=== PATIENT | female | born 1975 | race Caucasian/White ===

== ENCOUNTER → 2020-12-29 12:54 | Outpatient (BNVA) | payer OTHER, SELFPAY | PROVIDERS: Family Provider Family Medicine; Visit Provider Family Medicine | DX: Z20.822 Contact with and (suspected) exposure to COVID-19 (principal) | CPT/HCPCS: 87635 ==

== ENCOUNTER → 2021-07-18 13:59 | Outpatient (BNVA) | payer OTHER, SELFPAY | PROVIDERS: Family Provider Family Medicine; Visit Provider Family Medicine | DX: I10 Essential (primary) hypertension (principal); R79.89 Other specified abnormal findings of blood chemistry; Z76.89 Persons encountering health services in other specified circumstances; Z13.220 Encounter for screening for lipoid disorders; Z13.6 Encounter for screening for cardiovascular disorders | CPT/HCPCS: 80053; 80061; 84439; 84443; 85025 ==

== ENCOUNTER 2021-10-16 09:17 | Outpatient (CLI) | payer OTHER, SELFPAY ==
--- NOTE | 2021-10-16 09:28 | MM_ITS ---
WS: [id number] BILATERAL SCREENING DIGITAL BREAST TOMOSYNTHESIS MAMMOGRAM WITH CAD HISTORY: Screening HX OF BREAST CA COMPARISON: 05/05/2018 and 04/13/2018 Bilateral CC and MLO views with tomosynthesis and synthetic mammography submitted. Computer aided det ection analyzed. Breast composition: There are scattered areas of fibroglandular density. No suspicious masses, microc alcifications or architectural distortion. Previously described cyst and calcifications in the upper- outer quadrant of the LEFT breast are no longer present. MM/[place] [id number] IMPRESSION: BI-RADS: 2-Benign FOLLOW UP: 1 Year Follow-up
== END 2021-10-16 09:18 | disposition home or self-care (01) ==
LOC: RADSHAW 09:21
PROVIDERS: Family Provider Family Medicine; PCP Family Medicine; Visit Provider Family Medicine
DX: Z12.31 Encounter for screening mammogram for malignant neoplasm of breast (principal)
CPT/HCPCS: 77063; 77067

== ENCOUNTER 2022-01-29 14:02 | Emergency (ER) | payer OTHER, SELFPAY ==
[2022-01-29 14:13] VITALS: BP 160/103; PULSE 104; RESP 18; TEMP 36.6; O2SAT 97; BMI 36.2
--- NOTE | 2022-01-29 14:42 | CTR_ITS ---
PROCEDURE INFORMATION: Exam: CT Abdomen And Pelvis Without Contrast Exam date and time: 01/29/2022 3:30 PM Age: 46 years old Clinical indication: Abdominal pain; Flank; Right; Prior surgery; Surgery type: Gb, hyst; Additional info: Flank pain TECHNIQUE: Imaging protocol: Computed tomography of the abdomen and pelvis without contrast. Radiation optimization: All CT scans at this facility use at least one of these dose optimization techniques: automated exposure control; mA and/or kV adjustment per patient size (includes targeted exams where dose is matched to clinical indication); or iterative reconstruction. COMPARISON: No relevant prior studies available. RADIATION DOSE METRICS: Total DLP (mGy-cm): 844.71 FINDINGS: Liver: Normal. No mass. Gallbladder and bile ducts: Cholecystectomy. No ductal dilation. Pancreas: Normal. No ductal dilation. Spleen: Normal. No splenomegaly. Adrenal glands: Normal. No mass. Kidneys and ureters: Obstructing 3 mm stone at the right UVJ with mild upstream hydroureteronephrosis. A couple punctate nonobstructing stones noted in the lower pole left kidney. Stomach and bowel: Scattered colonic diverticulosis. No obstruction. No mucosal thickening. Appendix: No evidence of appendicitis. Intraperitoneal space: Unremarkable. No free air. No significant fluid collection. Vasculature: Unremarkable. No abdominal aortic aneurysm. Lymph nodes: Unremarkable. No enlarged lymph nodes. Urinary bladder: Unremarkable as visualized. Reproductive: Hysterectomy. 2.4 cm cyst noted in the left ovary, likely a dominant follicle. Bones/joints: No acute fracture. Soft tissues: Unremarkable. CT/CT kidney stone [id number] IMPRESSION: Obstructing 3 mm stone at the right UVJ with mild upstream hydroureteronephrosis. Punctate nonobstructing stones also noted in the left kidney.
[2022-01-29 14:59] VITALS: RESP 24
[2022-01-29] MEDS: morphine 4 mg/mL SDV 1 mL 6 MG IVP (14:59)
[2022-01-29] MEDS: ondansetron 2 mg/ML SDV 2 mL 4 MG IVP (15:02)
[2022-01-29 15:06] LABS: Basophils % 0.3 %; Eosinophils % 0.1 %; Hematocrit 44.3 % (37.0-47.0); Hemoglobin 14.6 g/dL (11.5-15.3); Lymphocytes # 1.9 10^3/uL (0.8-4.8); Mean Corpuscular Hemoglobin 28.5 pg (28.0-34.0); Mean Corpuscular Volume 86.5 fl (81-99); Mean Platelet Volume 9.4 fL (7.4-10.4); Monocytes # 0.6 10^3/uL (0.2-0.9); Monocytes % 4.1 %; Neutrophils # 13.06 10^3/uL (1.8-7.7); Nucleated Red Blood Cells % 0 %; Platelet Count 362 10^3/cmm (130-400); Red Blood Count 5.12 10^6/uL (4.1-5.3); Red Cell Distribution Width 12.8 % (12.1-15.1); White Blood Count 15.7 10^3/uL (4.0-10.0)
--- NOTE | 2022-01-29 15:13 | W.ED.FEMALGU ---
HPI - Female Genitourinary General: Chief complaint: Urogenital-Female Stated complaint: low abd pain/kidney stone Time Seen by Provider: 01/29/22 14:41 Source: patient Mode of arrival: ambulatory History of Present Illness: 46-year-old female with a history of kidney stones presents emergency care she was seen earlier today had hematuria thought to have a right-sided renal stone. She has a history of nephrolithiasis been several years since she passed the stone. She has severe cramping and pain characteristic of a stone on the right flank radiating pain into the groin. She not had any fevers or chills no dysuria urgency or frequency no darrian hematuria. She has been taking Tylenol and ibuprofen [id number] with no relief of pain MD elicited complaint: flank pain Onset (ago): day(s) Location of symptoms: flank (Right) Severity: severe Quality of pain: sharp Consistency: constant Vaginal discharge: none Vaginal bleeding: none Urinary symptoms: Flank Pain Exacerbating factors: none Relieving factors: none Associated symptoms: Reports nausea; Deny abdominal pain, short of breath, fevers/chills, headache(s), rash, seizures, syncope, vaginal bleeding, vaginal discharge or weakness Treatment prior to arrival: none Review of Systems Const: Denies: fever(s), chills, body aches, change in appetite, fatigue or malaise ENMT: Denies: throat pain, ear or mastoid pain, nasal discharge or nasal congestion Card: Denies: chest pain, palpitations or syncope Resp: Denies: dyspnea, productive cough or non-productive cough GI: Reports: nausea; Denies: abdominal pain : Reports: flank pain; Denies: difficulty voiding, dysuria, urinary frequency, urinary urgency or vaginal discharge Skin/Breast: Denies: rash or pruritus Neuro: Denies: headache(s) PFS ED PFSH: Social History Smoking and tobacco status: never smoked Alcohol intake: never Physical Exam Const: COMMON NORMALS: no acute distress GENERAL APPEARANCE: cooperative and comfortable ORIENTATION/CONSCIOUSNESS: Yes awake, Yes oriented to person, Yes oriented to place and Yes oriented to time HENMT: COMMON NORMALS: normocephalic, atraumatic and hearing grossly normal bilaterally HEAD & SCALP: normocephalic and atraumatic Resp: COMMON NORMALS: normal respiratory effort, No retractions, No use of accessory muscles and clear to auscultation bilaterally AUSCULTATION: clear to auscultation bilaterally Cardio: COMMON NORMALS: regular rate, regular rhythm and No murmurs present (Cardio) RATE: regular rate RHYTHM: regular rhythm GI: COMMON NORMALS: Soft to palpation and No hepatosplenomegaly present AUSCULTATION: Yes normoactive bowel sounds PALPATION: Yes Soft to palpation, No Tenderness to palpation present (GI), No Guarding due to palpation present (GI) and Yes No hepatosplenomegaly present : BLADDER/KIDNEY EXAM: Yes CVA tenderness SPECULUM EXAM - VAGINA: No vaginal bleeding OB/EXTERNAL & SPECULUM: No vaginal bleeding Back/Pelvis: GENERAL BACK: Yes CVA tenderness CVA tenderness: right Extremity: COMMON NORMALS: normal to inspection, capillary refill normal, no clubbing, cyanosis or edema, no calf tenderness and no pedal edema Neuro: SENSORIUM/ORIENTATION: Yes oriented to person, Yes oriented to place and Yes oriented to time Skin: COMMON NORMALS: no rashes or lesions noted GENERAL SKIN EXAM: no rashes or lesions noted Course Vital Signs: Vital signs: Vital Signs Temperature 97.9 F 01/29/22 14:13 Pulse Rate 104 H 01/29/22 14:13 Respiratory Rate 18 01/29/22 15:57 Blood Pressure 160/103 01/29/22 14:13 Pulse Oximetry 97 01/29/22 14:13 Oxygen Delivery Me thod 01/29/22 14:13 MDM - Female Medical Decision Making Pain controlled in the emergency room discharged home with hydrocodone tamsulosin and promethazine. Strain urine to collect stone. Follow-up with urology Case management will make arrangements. Discussed pain control with the patient. Return if pain poorly controlled. Medical Records I reviewed the patient's medical records. Lab Data I reviewed the patient's lab results. : 01/29/22 15:00 01/29/22 15:00 Radiology Impressions Abdomen/Pelvis CT 01/29/22 14:42 IMPRESSION: Obstructing 3 mm stone at the right UVJ with mild upstream hydroureteronephrosis. Punctate nonobstructing stones also noted in the left kidney. Laboratory Results WBC 15.7 10^3/uL (4.0-10.0) H 01/29/22 15:00 RBC 5.12 10^6/uL (4.1-5.3) 01/29/22 15:00 Hgb 14.6 g/dL (11.5-15.3) 01/29/22 15:00 Hct 44.3 % (37.0-47.0) 01/29/22 15:00 MCV 86.5 fl (81-99) 01/29/22 15:00 MCH 28.5 pg (28.0-34.0) 01/29/22 15:00 MCHC 33.0 g/dL (30.0-36.0) 01/29/22 15:00 RDW 12.8 % (12.1-15.1) 01/29/22 15:00 Plt Count 362 10^3/cmm (130-400) 01/29/22 15:00 MPV 9.4 fL (7.4-10.4) 01/29/22 15:00 Neut % (Auto) 83.0 % 01/29/22 15:00 Lymph % (Auto) 12.0 % 01/29/22 15:00 [place] % (Auto) 4.1 % 01/29/22 15:00 Eos % (Auto) 0.1 % 01/29/22 15:00 Baso % (Auto) 0.3 % 01/29/22 15:00 Neut # (Auto) 13.06 10^3/uL (1.8-7.7) H 01/29/22 15:00 Lymph # (Auto) 1.9 10^3/uL (0.8-4.8) 01/29/22 15:00 [place] # (Auto) 0.6 10^3/uL (0.2-0.9) 01/29/22 15:00 Eos # (Auto) 0.0 10^3/uL (0.0-0.8) 01/29/22 15:00 Baso # (Auto) 0.0 10^3/uL (0.0-0.1) 01/29/22 15:00 Nucleated RBC % (auto) 0 % 01/29/22 15:00 Nucleated RBCs # 0.0 /100WBC 01/29/22 15:00 Sodium 136 mmol/L (136-145) 01/29/22 15:00 Potassium 3.9 mmol/L (3.5-5.1) 01/29/22 15:00 Chloride 98 mmol/L (98-107) 01/29/22 15:00 Carbon Dioxide 21 mmol/L (22-29) L 01/29/22 15:00 Anion Gap 20.9 (5-19) H 01/29/22 15:00 BUN 9 mg/dL (6-20) 01/29/22 15:00 Creatinine 0.7 mg/dL (0.5-0.9) 01/29/22 15:00 GFR Calculation 90.9 mL/min (90-130) 01/29/22 15:00 Glucose 142 mg/dL (65-115) H 01/29/22 15:00 Calculated Osmolality 283 mOsm/kg (285-295) L 01/29/22 15:00 Calcium 10.2 mg/dL (8.5-10.5) 01/29/22 15:00 HCG, Qual Negative (Negative) 01/29/22 15:00 Discharge Plan Discharge Patient Disposition: Home Clinical Impression: Right nephrolithiasis Condition: Stable Prescriptions: New hydrocodone-acetaminophen 5-325 mg tablet 1 tab PO Q6H PRN (Reason: pain) Qty: 20 0RF promethazine 25 mg tablet 25 mg PO Q6H PRN (Reason: nausea and vomiting) Qty: 20 0RF tamsulosin 0.4 mg capsule 0.4 mg PO DAILY Qty: 10 0RF No Action benzonatate 100 mg capsule 100 mg PO TID PRN (Reason: cough) Qty: 30 0RF ondansetron 4 mg tablet,disintegrating 4 mg PO Q6H PRN (Reason: nausea and vomiting) Qty: 20 0RF lisinopril 20 mg tablet 20 mg PO QAM amlodipine 10 mg tablet 10 mg PO QAM Discharge Orders: Discharge ED (Routine); Ordered 01/29/22 Ordered By: Trell Cash Referrals: Coy Meeks DO [Primary Care Provider] - Discharge Diet: Usual diet Discharge Activity: Resume usual activity Patient Instructions: Opioid Safety Activity Restrictions/Additional Instructions: Strain urine to collect stone. transaction advisory services manager will make arrangements for you to follow-up with urology. Coding Level of Care Code ED Draw Frame Operator for Chg Fwd Exam Problem Focused
[2022-01-29 15:18] LABS: HCG, Serum Qual Negative (Negative)
[2022-01-29 15:33] LABS: Anion Gap 20.9 (5-19); Blood Urea Nitrogen 9 mg/dL (6-20); Calcium 10.2 mg/dL (8.5-10.5); Carbon Dioxide 21 mmol/L (22-29); Chloride 98 mmol/L (98-107); Glomerular Filtration Rate 90.9 mL/min (90-130); Glucose 142 mg/dL (65-115); Osmolality Calculated 283 mOsm/kg (285-295); Potassium 3.9 mmol/L (3.5-5.1); Sodium 136 mmol/L (136-145)
[2022-01-29 15:57] VITALS: RESP 18
[2022-01-29] MEDS: morphine 4 mg/mL SDV 1 mL IVP (15:57)
[2022-01-29] MEDS: tamsulosin 0.4 mg Capsule PO (15:58)
[2022-01-29] MEDS: ketorolac 30 mg/mL INJ IVP (16:21)
--- NOTE | 2022-01-30 10:01 | DCPLANNER ---
Addendum entered by Shari Roberson 03/28/22 14:57: appointment was cancelled Addendum entered by Shari Roberson 02/08/22 14:08: Patient has a follow up appointment scheduled for Friday, March 18, 2022 at 8:00 with Karina Pepper at urology. Clinic will call patient with appointment information. Original Note: manager of medical had message to schedule a follow up appointment for patient with urology. manager of medical sent patients information to the front office staff at urology. Patients information will be printed and reviewed. Clinic will call patient with appointment information.
== END 2022-01-29 16:48 | disposition home or self-care (01) ==
PROVIDERS: Emergency Provider Family Medicine; PCP Family Medicine
DX: N20.0 Calculus of kidney (principal)
CPT/HCPCS: 74176; 80048; 81000; 84703; 85025; 96374; 96375; 96376; 99285; J1885; J2270; J2405

== ENCOUNTER 2023-07-05 20:09 | Emergency (ER) | payer OTHER, SELFPAY ==
[2023-07-05 20:18] VITALS: BMI 32.9
[2023-07-05 20:43] LABS: Amphetamines Screen Urine Negative (Negative); Barbiturates Screen Urine Negative (Negative); Benzodiazepines Screen Urine Negative (Negative); Cocaine Screen Urine Negative (Negative); Opiate Screen Urine Negative (Negative); PCP Screen Urine Negative (Negative); THC Screen Urine Negative (Negative)
--- NOTE | 2023-07-06 01:54 | ED_ITS ---
HPI - Medical Clearance General: Chief complaint: Medical Clearance Stated complaint: urine drug screen Time Seen by Provider: 07/05/23 20:26 Source: patient Mode of arrival: ambulatory Limitations: no limitations History of Present Illness: Patient presents emergency department today accompanied by staff for urine drug screen due to medication discrepancy for Adderall at shift change. Review of Systems General: Reports: 10 or more systems reviewed and unremarkable except in HPI and below PFSH ED PFSH: Social History Smoking and tobacco/nicotine status: never used tobacco/nicotine Second hand smoke exposure: No Alcohol intake: never Substance/Drug Use: never Physical Exam Const: OTHER: Patient is pleasant, social. Answers her own history. Extremity: NARRATIVE EXTREMITY EXAM: Patient is independently ambulatory and weightbearing here in the emergency department. Psych: COMMON NORMALS: mental status grossly normal, Normal thought process present, cooperative, normal affect, speech normal and activity/motor behavior normal SPEECH: Yes normal speech THOUGHT PROCESS: Normal thought process present [facility] - Medical Clearance Medical Decision Making Patient produced a urine specimen for urine drug screen. Urine drug screen is negative. Patient's paperwork was filled out and given back to the resort housekeeper to then be given to employee health. Differential Diagnosis Unlikely urinary tract infection, genital herpes simplex or acute retention of urine Lab Data Laboratory Results Urine Opiates Screen Negative ng/mL (Negative) 07/05/23 20:25 Ur Barbiturates Screen Negative ng/mL (Negative) 07/05/23 20:25 Ur Phencyclidine Scrn Negative ng/mL (Negative) 07/05/23 20:25 Ur Amphetamines Screen Negative ng/mL (Negative) 07/05/23 20:25 U Benzodiazepines Scrn Negative ng/mL (Negative) 07/05/23 20:25 Urine Cocaine Screen Negative ng/mL (Negative) 07/05/23 20:25 U Marijuana (THC) Screen Negative ng/mL (Negative) 07/05/23 20:25 No radiology studies performed this visit Discharge Plan Discharge Patient Disposition: Home Clinical Impression: Encounter for drug screening Prescriptions: No Action amlodipine 5 mg tablet See Rx Instructions .ROUTE .COMPLEX Qty: 90 3RF Dose Instruction: Take 1 tablet by mouth once daily Rx Instructions: Take 1 tablet by mouth once daily chlorthalidone 25 mg tablet 25 mg PO DAILY Qty: 90 3RF vilazodone 20 mg tablet 20 mg PO DAILY 90 Days Qty: 90 3RF losartan 50 mg tablet See Rx Instructions .ROUTE .COMPLEX Qty: 90 0RF Dose Instruction: TAKE ONE TABLET BY MOUTH EVERY DAY Rx Instructions: TAKE ONE TABLET BY MOUTH EVERY DAY Discharge Orders: Discharge ED (Routine); Ordered 07/06/23 Ordered By: Ting Riley Referrals: Coy Meeks DO [Primary Care Provider] - Patient Instructions: Opioid Safety, Pain Management Coding Level of Care Code ED [facility] [place] for [facility] Justice
== END 2023-07-05 21:18 | disposition home or self-care (01) ==
PROVIDERS: Emergency Medicine; Emergency Provider Physician Assistant; PCP Family Medicine
DX: Z00.00 Encounter for general adult medical examination without abnormal findings (principal)
CPT/HCPCS: 80306; 99283

== ENCOUNTER 2023-10-27 02:38 | Emergency (ER) | payer OTHER, SELFPAY ==
[2023-10-27] VITALS (15 sets, daily range): BP systolic 103–200; BP diastolic 66–116; PULSE 64–85; RESP 15–20; TEMP 36.6; O2SAT 94–100; BMI 34.7
--- NOTE | 2023-10-27 03:02 | CTR_ITS ---
PROCEDURE INFORMATION: Exam: CT Abdomen And Pelvis With Contrast Exam date and time: 10/27/2023 3:19 AM Age: 48 years old Clinical indication: Nausea and vomiting; Abdominal pain; Localized; Prior surgery; Surgery date: 6+ months; Surgery type: Gb. Partial hysterectomy. Patient HX: C/O upper abd pain with n/v. ; Additional info: Upper abd pain vomiting TECHNIQUE: Imaging protocol: Computed tomography of the abdomen and pelvis with contrast. Radiation optimization: All CT scans at this facility use at least one of these dose optimization techniques: automated exposure control; mA and/or kV adjustment per patient size (includes targeted exams where dose is matched to clinical indication); or iterative reconstruction. Contrast material: OMNI 350; Contrast volume: 100 ml; Contrast route: INTRAVENOUS (IV); COMPARISON: CT kidney stone [id number] 01/29/2022 3:30 PM RADIATION DOSE METRICS: Total DLP (mGy-cm): 888.5 FINDINGS: Lungs: Partially imaged lung bases demonstrate mild posterior basilar somewhat nodular pleural thickening. Liver: Mild diffuse hepatic steatosis. No focal liver lesion. Gallbladder and bile ducts: Status post cholecystectomy. 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 Adrenal glands: Normal. No mass. Kidneys and ureters: Normal. No hydronephrosis. Stomach and bowel: Diffuse prominent circumferential duodenal and jejunal wall thickening and hyperenhancement. No abnormal bowel dilation. Differential diagnosis for this appearance includes hemorrhage, ischemia and lymphoma. Nonspecific nondilated fluid-filled loops of ileum. Appendix: No evidence of appendicitis. Intraperitoneal space: Unremarkable. No free air. No significant fluid collection. Vasculature: Celiac trunk again appears aneurysmal up to 10 mm diameter and is seen to contain a large amount of mural thrombus, with suggestion of possible small filling defects within the celiac trunk well as proximal splenic artery; mid to distal splenic artery is completely. Common hepatic artery again appears aneurysmal up to 8 mm diameter ; it contains a large amount of mural thrombus but appears patent. Left gastric artery may contain small filling defects and patency is difficult to ascertain. SMA and RAAD appear patent. Portal splenic confluence and SMV are patent. Lymph nodes: Shotty mesenteric nodes. No enlarged lymph nodes. Urinary bladder: Unremarkable as visualized. Reproductive: 3 cm left ovarian follicle. Bones/joints: Unremarkable. No acute fracture. Soft tissues: Unremarkable. CT/CT abdomen pelvis w con* [id number] IMPRESSION: 1. 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 2. 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 Findings discussed with Dr. Mackenzie at 4:10 a.m. on 10/27/2023. 3. Diffuse prominent circumferential duodenal and jejunal wall thickening and hyperenhancement. Consider GI consultation. 4. Chronic findings as above
[2023-10-27] MEDS: ondansetron 2 mg/ML SDV 2 mL 4 MG IVP ×2 (03:08→09:04)
[2023-10-27] MEDS: HYDROmorphone 1 mg/mL INJ 1 mL IVP ×5 (03:10→11:41)
[2023-10-27 03:11] LABS: Basophils % 0.2 %; Eosinophils # 0.4 10^3/uL (0.0-0.8); Eosinophils % 3.3 %; Hematocrit 40.1 % (36-47); Lymphocytes # 4.6 10^3/uL (0.8-4.8); Lymphocytes % 36.8 %; Mean Corpuscular HGB Conc 32.4 g/dL (30-55); Mean Corpuscular Hemoglobin 28.8 pg (27-33); Mean Corpuscular Volume 88.7 fl (85-98); Mean Platelet Volume 9.4 fL (7.4-10.4); Monocytes # 0.8 10^3/uL (0.2-0.9); Monocytes % 6.5 %; Neutrophils # 6.49 10^3/uL (1.8-7.7); Neutrophils % 52.5 %; Nucleated Red Blood Cells % 0 %; Platelet Count 299 10^3/cmm (157-399); Red Blood Count 4.52 10^6/uL (3.85-5.65); Red Cell Distribution Width 14.7 % (12.1-15.1); White Blood Count 12.38 10^3/uL (3.29-11.43)
[2023-10-27] MEDS: iohexol 350 mg/mL 500 mL Btl (per mL) IV (03:20)
[2023-10-27 03:21] LABS: Alanine Aminotransferase 15 U/L (0-33); Albumin Level 3.9 g/dL (3.5-5.2); Alkaline Phosphatase 92 U/L (35-105); Anion Gap 16.3 (5-19); Aspartate Amino Transferase 15 U/L (0-32); Blood Urea Nitrogen 10 mg/dL (6-20); C Reactive Protein 18.1 mg/L (0.0-4.9); Calcium 8.7 mg/dL (8.5-10.5); Carbon Dioxide 25 mmol/L (22-29); Chloride 102 mmol/L (98-107); Creatine Phosphokinase 109 U/L (26-192); Creatinine Clr Calc Pharmacy 89.5174; Globulin 3.5 g/dL (1.3-4.6); Glomerular Filtration Rate 77.2 mL/min (90-130); Glucose 129 mg/dL (65-115); Lipase 30 U/L (13-60); Osmolality Calculated 291 mOsm/kg (285-295); Potassium 3.3 mmol/L (3.5-5.1); Sodium 140 mmol/L (136-145); Total Bilirubin 0.2 mg/dL (0.15-1.2); Total Protein 7.4 g/dL (6.6-8.7)
--- NOTE | 2023-10-27 03:26 | ED_ITS ---
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 She is status postcholecystectomy and hysterectomy. She presents with upper abdominal pain bilaterally that woke her from sleep this morning. Tenderness is across her epigastrium and into her back. It is perhaps a bit more on the right than the left. She is not short of breath. She has been vomiting. Associated Symptoms: Reports chills, diarrhea, nausea and vomiting; Denies fever(s) and hematochezia Review of Systems 2 Const: Reports: chills; Denies: fever(s) Card: Denies: chest pain or palpitations Resp: Denies: dyspnea, productive cough, non-productive cough or wheezing GI: Reports: abdominal pain, nausea, vomiting and diarrhea; Denies: hematochezia : Denies: difficulty voiding Skin/Breast: Denies: rash Neuro: Reports: weakness in extremities, dizziness and confusion; Denies: headache(s) PFSH ED 2 PFSH: Social History Smoking and tobacco/nicotine status: never used tobacco/nicotine Second hand smoke exposure: No Alcohol intake: never Substance/Drug Use: never Physical Exam 2 Const: GENERAL APPEARANCE: cooperative; not frail appearing HENMT: COMMON NORMALS: normocephalic, atraumatic and Normal external nose present HEAD & SCALP: normocephalic and atraumatic FACE & SINUS: normal facial exam and face symmetric NOSE: Normal external nose present Eye: COMMON NORMALS: Equal, round and reactive pupils present and EOMs intact bilaterally PUPIL: Yes Equal, round and reactive pupils present Neck/C-Spine: GENERAL: Yes trachea midline Chest: CHEST: Yes Symmetrical chest wall rise Resp: COMMON NORMALS: normal respiratory effort, No retractions, No use of accessory muscles and clear to auscultation bilaterally AUSCULTATION: clear to auscultation bilaterally Cardio: COMMON NORMALS: regular rate and regular rhythm RATE: regular rate RHYTHM: regular rhythm GI: COMMON NORMALS: Soft to palpation PALPATION: Yes Soft to palpation and Yes Tenderness to palpation present (GI) (Epigastric) Details: LUQ and RUQ Extremity: COMMON NORMALS: no pedal edema Neuro: ROBERTO CARLOS COMA SCALE: document GCS findings [place] coma scale eye opening: Spontaneous [place] coma scale verbal response: Orientated Roberto Carlos coma scale motor response: Obey commands Roberto Carlos coma scale total score: 15 S ENSORY EXAM: Yes extremities (intact) Psych: COMMON NORMALS: speech normal SPEECH: Yes normal speech Skin: COMMON NORMALS: no rashes or lesions noted GENERAL SKIN EXAM: no rashes or lesions noted Course 2 Vital Signs: Vital signs: Vital Signs Temperature 97.8 F 10/27/23 02:43 Pulse Rate 85 10/27/23 13:19 Respiratory Rate 16 10/27/23 13:19 Blood Pressure 126/90 10/27/23 13:19 Pulse Oximetry 94 10/27/23 13:19 Oxygen Delivery Me thod Room Air 10/27/23 09:08 MDM - Abdominal Pain Medical Decision Making White blood cell count is 12.4. Potassium is 3.3. CRP is 18. CT is pending. Pain is improved after Dilaudid and Zofran. Blood pressure is also improved down from 200 systolic to 145 systolic. 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 There are some wall thickening of the duodenum and jejunum perhaps related to this. We have no vascular surgery or interventional radiology at this facility. I have a call out to [facility] in [place] asking for recommendations. The patient is awake and alert, pain is under more control currently. Lab Data 10/27/23 02:49 10/27/23 02:49 Labs/Radiology: Radiology Impressions Abdomen/Pelvis CT 10/27/23 03:02 IMPRESSION: 1. 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 2. 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 Findings discussed with Dr. Mackenzie at 4:10 a.m. on 10/27/2023. 3. Diffuse prominent circumferential duodenal and jejunal wall thickening and hyperenhancement. Consider GI consultation. 4. Chronic findings as above Laboratory Results WBC 12.38 10^3/uL (3.29-11.43) H 10/27/23 02:49 RBC 4.52 10^6/uL (3.85-5.65) 10/27/23 02:49 Hgb 13.00 g/dL (11.27-16.99) 10/27/23 02:49 Hct 40.1 % (36-47) 10/27/23 02:49 MCV 88.7 fl (85-98) 10/27/23 02:49 MCH 28.8 pg (27-33) 10/27/23 02:49 MCHC 32.4 g/dL (30-55) 10/27/23 02:49 RDW 14.7 % (12.1-15.1) 10/27/23 02:49 Plt Count 299 10^3/cmm (157-399) 10/27/23 02:49 MPV 9.4 fL (7.4-10.4) 10/27/23 02:49 Neut % (Auto) 52.5 % 10/27/23 02:49 Lymph % (Auto) 36.8 % 10/27/23 02:49 Placer % (Auto) 6.5 % 10/27/23 02:49 Eos % (Auto) 3.3 % 10/27/23 02:49 Baso % (Auto) 0.2 % 10/27/23 02:49 Neut # (Auto) 6.49 10^3/uL (1.8-7.7) 10/27/23 02:49 Lymph # (Auto) 4.6 10^3/uL (0.8-4.8) 10/27/23 02:49 Placer # (Auto) 0.8 10^3/uL (0.2-0.9) 10/27/23 02:49 Eos # (Auto) 0.4 10^3/uL (0.0-0.8) 10/27/23 02:49 Baso # (Auto) 0.0 10^3/uL (0.0-0.1) 10/27/23 02:49 Nucleated RBC % (auto) 0 % 10/27/23 02:49 Nucleated RBCs # 0.0 /100WBC 10/27/23 02:49 ESR 24 mm/hr (0-15) H 10/27/23 02:49 APTT 57.6 SECONDS (23.9-36.7) H D 10/27/23 12:55 Sodium 140 mmol/L (136-145) 10/27/23 02:49 Potassium 3.3 mmol/L (3.5-5.1) L 10/27/23 02:49 Chloride 102 mmol/L (98-107) 10/27/23 02:49 Carbon Dioxide 25 mmol/L (22-29) 10/27/23 02:49 Anion Gap 16.3 (5-19) 10/27/23 02:49 BUN 10 mg/dL (6-20) 10/27/23 02:49 Creatinine 0.8 mg/dL (0.5-0.9) 10/27/23 02:49 GFR Calculation 77.2 mL/min (90-130) L 10/27/23 02:49 Glucose 129 mg/dL (65-115) H 10/27/23 02:49 Calculated Osmolality 291 mOsm/kg (285-295) 10/27/23 02:49 Lactic Acid 1.2 mmol/L (0.5-2.2) 10/27/23 04:42 Calcium 8.7 mg/dL (8.5-10.5) 10/27/23 02:49 Total Bilirubin 0.2 mg/dL (0.15-1.2) 10/27/23 02:49 AST 15 U/L (0-32) 10/27/23 02:49 ALT 15 U/L (0-33) 10/27/23 02:49 Alkaline Phosphatase 92 U/L (35-105) 10/27/23 02:49 Creatine Kinase 109 U/L (26-192) 10/27/23 02:49 C-Reactive Protein 18.1 mg/L (0.0-4.9) H 10/27/23 02:49 Total Protein 7.4 g/dL (6.6-8.7) 10/27/23 02:49 Albumin 3.9 g/dL (3.5-5.2) 10/27/23 02:49 Globulin 3.5 g/dL (1.3-4.6) 10/27/23 02:49 Lipase 30 U/L (13-60) 10/27/23 02:49 Urine Color Colorless (Yellow) 10/27/23 03:42 Urine Appearance Clear (CLEAR) 10/27/23 03:42 Urine pH 7 (5-7) 10/27/23 03:42 Ur Specific Corrigan 1.000 (1.005-1.030) L 10/27/23 03:42 Urine Protein Neg (Negative) 10/27/23 03:42 Urine Glucose (UA) Norm (Normal) 10/27/23 03:42 Urine Ketones Negative (Negative) 10/27/23 03:42 Urine Blood Neg (Negative) 10/27/23 03:42 Urine Nitrate Negative (Negative) 10/27/23 03:42 Urine Bilirubin Neg (Negative) 10/27/23 03:42 Urine Urobilinogen Neg mg/dL (Negative) 10/27/23 03:42 Ur Leukocyte Esterase Negative (Negative) 10/27/23 03:42 All radiology interpretation(s) finalized by discharge Discharge Plan Discharge Patient Disposition: Xfer Short-Term Hosp Clinical Impression: Thrombosis of splenic artery, Infarction of spleen, Aneurysm of celiac artery Condition: Fair Referrals: Coy Meeks DO [Primary Care Provider] - Coding Level of Care Code ED [employer] Lab Technician for Chg Fwd Documented by User: Trell Cash DO 10/27/23 13:20 HPI - Abdominal Pain 2 General: Chief Complaint: Abdominal Pain Stated Complaint: severe sudden back pain wraps around Time Seen by Provider: 10/27/23 03:02 [facility] ED 2 PFSH: Social History Smoking and tobacco/nicotine status: never used tobacco/nicotine Second hand smoke exposure: No Alcohol intake: never Substance/Drug Use: never Physical Exam 2 Neuro: ROBERTO CARLOS COMA SCALE: document GCS findings [place] coma scale total score: 15 Course 2 Vital Signs: Vital signs: Vital Signs Temperature 97.8 F 10/27/23 02:43 Pulse Rate 85 10/27/23 13:19 Respiratory Rate 16 10/27/23 13:19 Blood Pressure 126/90 10/27/23 13:19 Pulse Oximetry 94 10/27/23 13:19 Oxygen Delivery Me thod Room Air 10/27/23 09:08 MDM - Abdominal Pain Medical Decision Making White blood cell count is 12.4. Potassium is 3.3. CRP is 18. CT is pending. Pain is improved after Dilaudid and Zofran. Blood pressure is also improved down from 200 systolic to 145 systolic. 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 There are some wall thickening of the duodenum and jejunum perhaps related to this. We have no vascular surgery or interventional radiology at this facility. I have a call out to [facility] in [place] asking for recommendations. The patient is awake and alert, pain is under more control currently. Care assumed at change of shift I discussed with the vascular surgery at [facility]. They are concerned about vasculitis or rheumatologic disorder hypercoagulability or occult tumor precipitating these thrombosis they are not as concerned about the potential aneurysm of the celiac artery they do not believe that it is an aneurysm after reviewing the films that we sent to them. I discussed Dr. Flores we do not feel that we have appropriate services here to further work this up especially given her age and the multiple thrombosis that she has. Will transfer to [facility] to the hospitalist service they will consult as appropriate including possibly GI rheumatology and vascular. Discussed with patient to continue the heparin pain control transfer via [facility] to [facility] in stable condition Medical Records I reviewed the patient's medical records. Lab Data I reviewed the patient's lab results. 10/27/23 02:49 10/27/23 02:49 Labs/Radiology: Radiology Impressions Abdomen/Pelvis CT 10/27/23 03:02 IMPRESSION: 1. 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 2. 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 Findings discussed with Dr. Mackenzie at 4:10 a.m. on 10/27/2023. 3. Diffuse prominent circumferential duodenal and jejunal wall thickening and hyperenhancement. Consider GI consultation. 4. Chronic findings as above Laboratory Results WBC 12.38 10^3/uL (3.29-11.43) H 10/27/23 02:49 RBC 4.52 10^6/uL (3.85-5.65) 10/27/23 02:49 Hgb 13.00 g/dL (11.27-16.99) 10/27/23 02:49 Hct 40.1 % (36-47) 10/27/23 02:49 MCV 88.7 fl (85-98) 10/27/23 02:49 MCH 28.8 pg (27-33) 10/27/23 02:49 MCHC 32.4 g/dL (30-55) 10/27/23 02:49 RDW 14.7 % (12.1-15.1) 10/27/23 02:49 Plt Count 299 10^3/cmm (157-399) 10/27/23 02:49 MPV 9.4 fL (7.4-10.4) 10/27/23 02:49 Neut % (Auto) 52.5 % 10/27/23 02:49 Lymph % (Auto) 36.8 % 10/27/23 02:49 Placer % (Auto) 6.5 % 10/27/23 02:49 Eos % (Auto) 3.3 % 10/27/23 02:49 Baso % (Auto) 0.2 % 10/27/23 02:49 Neut # (Auto) 6.49 10^3/uL (1.8-7.7) 10/27/23 02:49 Lymph # (Auto) 4.6 10^3/uL (0.8-4.8) 10/27/23 02:49 Placer # (Auto) 0.8 10^3/uL (0.2-0.9) 10/27/23 02:49 Eos # (Auto) 0.4 10^3/uL (0.0-0.8) 10/27/23 02:49 Baso # (Auto) 0.0 10^3/uL (0.0-0.1) 10/27/23 02:49 Nucleated RBC % (auto) 0 % 10/27/23 02:49 Nucleated RBCs # 0.0 /100WBC 10/27/23 02:49 ESR 24 mm/hr (0-15) H 10/27/23 02:49 APTT 57.6 SECONDS (23.9-36.7) H D 10/27/23 12:55 Sodium 140 mmol/L (136-145) 10/27/23 02:49 Potassium 3.3 mmol/L (3.5-5.1) L 10/27/23 02:49 Chloride 102 mmol/L (98-107) 10/27/23 02:49 Carbon Dioxide 25 mmol/L (22-29) 10/27/23 02:49 Anion Gap 16.3 (5-19) 10/27/23 02:49 BUN 10 mg/dL (6-20) 10/27/23 02:49 Creatinine 0.8 mg/dL (0.5-0.9) 10/27/23 02:49 GFR Calculation 77.2 mL/min (90-130) L 10/27/23 02:49 Glucose 129 mg/dL (65-115) H 10/27/23 02:49 Calculated Osmolality 291 mOsm/kg (285-295) 10/27/23 02:49 Lactic Acid 1.2 mmol/L (0.5-2.2) 10/27/23 04:42 Calcium 8.7 mg/dL (8.5-10.5) 10/27/23 02:49 Total Bilirubin 0.2 mg/dL (0.15-1.2) 10/27/23 02:49 AST 15 U/L (0-32) 10/27/23 02:49 ALT 15 U/L (0-33) 10/27/23 02:49 Alkaline Phosphatase 92 U/L (35-105) 10/27/23 02:49 Creatine Kinase 109 U/L (26-192) 10/27/23 02:49 C-Reactive Protein 18.1 mg/L (0.0-4.9) H 10/27/23 02:49 Total Protein 7.4 g/dL (6.6-8.7) 10/27/23 02:49 Albumin 3.9 g/dL (3.5-5.2) 10/27/23 02:49 Globulin 3.5 g/dL (1.3-4.6) 10/27/23 02:49 Lipase 30 U/L (13-60) 10/27/23 02:49 Urine Color Colorless (Yellow) 10/27/23 03:42 Urine Appearance Clear (CLEAR) 10/27/23 03:42 Urine pH 7 (5-7) 10/27/23 03:42 Ur Specific Corrigan 1.000 (1.005-1.030) L 10/27/23 03:42 Urine Protein Neg (Negative) 10/27/23 03:42 Urine Glucose (UA) Norm (Normal) 10/27/23 03:42 Urine Ketones Negative (Negative) 10/27/23 03:42 Urine Blood Neg (Negative) 10/27/23 03:42 Urine Nitrate Negative (Negative) 10/27/23 03:42 Urine Bilirubin Neg (Negative) 10/27/23 03:42 Urine Urobilinogen Neg mg/dL (Negative) 10/27/23 03:42 Ur Leukocyte Esterase Negative (Negative) 10/27/23 03:42 Discharge Plan Discharge Patient Disposition: Xfer Short-Term Hosp Clinical Impression: Thrombosis of splenic artery, Infarction of spleen, Aneurysm of celiac artery Condition: Fair Referrals: Coy Meeks DO [Primary Care Provider] - Coding Level of Care Code ED [employer] Lab Technician for Chg Vinh
[2023-10-27 03:53] LABS: Add Urine Microscopic? NO; Charge for UA Resulting for Rev
[2023-10-27 03:55] LABS: Bilirubin Urine Neg (Negative); Blood Urine Neg (Negative); Glucose Urine UA Norm (Normal); Ketones Urine Negative (Negative); Leukocyte Esterase Urine Negative (Negative); Nitrate Urine Negative (Negative); Protein Urine Neg (Negative); Urine Appearance Clear (CLEAR); Urine Color Colorless (Yellow); Urobilinogen Urine Neg (Negative); pH Urine 7 (5-7)
[2023-10-27] MEDS: hyDRALAzine 20 mg/mL INJ 1 mL 10 MG IVP (04:43)
[2023-10-27 05:11] LABS: Lactic Sepsis W/Reflex 1.2 mmol/L (0.5-2.2)
[2023-10-27] MEDS: heparin drip 25,000 UNIT/500 ML PREMIX 24.129999999999999 UNIT IV (05:48)
[2023-10-27] MEDS: heparin 5,000 unit/mL INJ 1 mL IV (05:51)
--- NOTE | 2023-10-27 07:33 | PC.PHAR ---
PT STATES HAS NOT TAKEN CHLOTHALIDONE 25MG IN A MONTH.
[2023-10-27 08:05] LABS: Partial Thromboplastin Time 30.6 SECONDS (23.9-36.7)
[2023-10-27 09:13] LABS: Erythrocyte Sedimentation Rate 24 mm/hr (0-15)
--- NOTE | 2023-10-27 12:48 | PC.NURSE ---
Report given to Cheo Soliz RN at [facility]. No further questions verbalized at end of report. pt notified of this status change.
--- NOTE | 2023-10-27 13:14 | PC.NURSE ---
Report given to [facility] @1999, no further questions verbalized at end of report. 1 IV pump sent with [facility].
[2023-10-27 13:35] LABS: Partial Thromboplastin Time 57.6 SECONDS (23.9-36.7)
== END 2023-10-27 13:20 | disposition short-term general hospital (02) ==
PROVIDERS: Emergency Medicine; Emergency Provider Family Medicine; PCP Family Medicine
DX: I74.8 Embolism and thrombosis of other arteries (principal); I72.8 Aneurysm of other specified arteries
CPT/HCPCS: 36415; 74177; 80053; 81003; 82550; 83605; 83690; 85025; 85651; 85730; 86140; 96374; 96375; 96376; 99285; J0360; J1170; J1644; J2405; Q9967

== ENCOUNTER → 2023-11-06 09:22 | Outpatient (BNVA) | payer OTHER, SELFPAY | PROVIDERS: PCP Family Medicine; Visit Provider Family Medicine | DX: S36.00XA Unspecified injury of spleen, initial encounter (principal); X58.XXXA Exposure to other specified factors, initial encounter | CPT/HCPCS: 80053; 85025 ==

== ENCOUNTER 2023-11-11 15:21 | Outpatient (CLI) | payer OTHER, SELFPAY ==
[2023-11-13 22:30] LABS: Lupus DRVVT Confirm NEGATIVE (NEGATIVE); Lupus Hexagonal Phas Confirm WEAKLY POSITIVE (NEGATIVE); Lupus Thrombin Clotting Time 18 sec (13-19); PTT-LA-Screen 52 sec (< OR = 40)
[2023-11-17 07:00] LABS: Anti-Cardiolipin IgA AB 2.3 APL-U/mL
[2023-11-17 11:54] LABS: Anti-Nuclear Antibody Pattern Nuclear, Speckled; Anti-Nuclear Antibody Screen POSITIVE (NEGATIVE); Anti-Nuclear Antibody Titer 1:40 titer
== END 2023-11-11 15:22 | disposition home or self-care (01) ==
LOC: LAB 15:22
PROVIDERS: PCP Family Medicine; Visit Provider Family Medicine
DX: I82.90 Acute embolism and thrombosis of unspecified vein (principal)
CPT/HCPCS: 85613; 85730; 86038; 86146; 86147

== ENCOUNTER → 2024-08-18 13:00 | Outpatient (BNVA) | payer OTHER, SELFPAY | PROVIDERS: PCP Family Medicine; Visit Provider Family Medicine | DX: R79.89 Other specified abnormal findings of blood chemistry (principal); I26.99 Other pulmonary embolism without acute cor pulmonale; R91.1 Solitary pulmonary nodule; I77.79 Dissection of other specified artery; E55.9 Vitamin D deficiency, unspecified | CPT/HCPCS: 80053; 80061; 82306; 82607; 82728; 83540; 84439; 84443; 85025 ==

== ENCOUNTER 2024-09-07 07:47 | Outpatient (CLI) | payer OTHER, SELFPAY ==
--- NOTE | 2024-09-07 08:00 | CT_ITS ---
WS: [id number] CTA CHEST, ABDOMEN AND PELVIS. HISTORY: Follow-up celiac artery thrombus and splenic infarct. TECHNIQUE: CT angiogram is performed through the chest. Additional imaging is performed through the abdomen and pelvis with IV contrast. Sagittal and coronal reformats have been submitted. MIP imaging also reviewed. All CT scans at [facility] use at least one of these dose optimization techniques: automated exposure control; mA and/or kV adjustment per patient size (includes targeted exams where dose is matched to clinical indication); or iterative reconstruction. Contrast: Omnipaque 350; 95 cc IV. DLP: 1272.39 mGy.cm COMPARISON: CT abdomen and pelvis. Chest CTA: Good opacification of the pulmonary arteries. No embolism is identified. There is beam hardening artifact through the proximal RIGHT pulmonary artery. Normal sized thoracic aorta. Normal great vessels. Heart size is normal. There is a filling defect within the LEFT atrial appendage. No RIGHT heart strain. No pericardial or pleural effusions. No pulmonary mass or pneumonia. Small hiatal hernia. Negative chest wall. Abdomen and pelvis CTA: Good opacification of the abdominal aorta. Good opacification of the celiac axis and SMV. No thrombus or residual inflammatory changes. Inferior mesenteric artery is also widely patent. Good opacification through the iliac arteries. Hepatic steatosis. Mosaic attenuation throughout the spleen due to early phase of injection. No splenic atrophy. Cannot comment on residual infarcts within the spleen due to the early angiographic imaging phase. Normal pancreas. Prior cholecystectomy. Normal renal enhancement. No adenopathy or ascites. Small umbilical hernia contains fat only. No GI tract obstruction. No colitis. No osseous destruction. Prior hysterectomy. Urinary bladder is normally distended. Both ovaries do appear to be present. The appendix is normal. CT/CT [facility] abdpe [id number] IMPRESSION: 1. No pulmonary embolism. 2. Small filling defect in the LEFT atrial appendage. Thrombus should be consi dered versus filling defect. Recommend evaluation by echocardiography. 3. No residual thrombus in the celiac axis. Normal caliber of the hepatic harper ry and splenic artery. 4. No aortic aneurysm. 5. Prior cholecystectomy. 6. Prior hysterectomy.
[2024-09-07] MEDS: iohexol 350 mg/mL 500 mL Btl (per mL) IV (08:45)
== END 2024-09-07 07:48 | disposition home or self-care (01) ==
PROVIDERS: PCP Family Medicine; Visit Provider Family Medicine
DX: I77.79 Dissection of other specified artery (principal); I26.99 Other pulmonary embolism without acute cor pulmonale; R93.89 Abnormal findings on diagnostic imaging of other specified body structures; Z90.49 Acquired absence of other specified parts of digestive tract; Z90.710 Acquired absence of both cervix and uterus; K44.9 Diaphragmatic hernia without obstruction or gangrene; K76.0 Fatty (change of) liver, not elsewhere classified; K42.9 Umbilical hernia without obstruction or gangrene
CPT/HCPCS: 71275; 74174

== ENCOUNTER 2024-10-21 09:07 | Outpatient (CLI) | payer OTHER, SELFPAY ==
--- NOTE | 2024-10-21 09:15 | USCV_ITS ---
Gilberto Shavon Age: 49 Gender: F : 1975 Exam Date: 10/21/2024 09:23 Ordering Phys: Coy Meeks DO Technologist: Exam Location: [facility] [place] Indication: abnormal ct BP: 150 / 90 HR: 67 Rhythm: Sinus Technical Quality: Adequate MEASUREMENTS (Male / Female) Normal Values 2D ECHO LV Diastolic Diameter PLAX 4.2 cm 4.2 - 5.9 / 3.9 - 5.3 cm IVS Diastolic Thickness 1.6 cm 0.6 - 1.0 / 0.6 - 0.9 cm IVS Systolic Thickness 1.8 cm LVPW Diastolic Thickness 1.6 cm 0.6 - 1.0 / 0.6 - 0.9 cm LVPW Systolic Thickness 1.8 cm LVOT Diameter 2.0 cm LV Ejection Fraction 2D Teich 49.1 % LV Ejection Fraction MOD 4C 63.6 % LV Ejection Fraction MOD 2C 60.4 % LV Ejection Fraction 2C AL 59.6 % LA Diameter 3.2 cm RA Systolic Volume 4C AL 39.3 ml RA Systolic Volume 4C MOD 37.5 ml LA Sys Volume AL 40.6 cm cubed LA Sys Volume Index AL 19.9 cm cubed/m squared Aorta at Sinotubular Diameter 2.7 cm IVC Diameter 2.1 cm M-MODE LA Ao Ratio MM 1.4 AV Cusp Separation MM 2.0 cm DOPPLER AV Peak Velocity 125.0 cm/s LVOT Peak Velocity 98.0 cm/s AV Area Cont Eq vti 2.9 cm squared AV Area Cont Eq pk 2.5 cm squared MV Peak Velocity 97.0 cm/s MV Area PHT 4.0 cm squared Mitral E to A Ratio 1.0 TV Peak Velocity 161.5 cm/s TR Peak Velocity 176.0 cm/s TR Peak Gradient 12.4 mmHg TV Peak E Velocity 61.0 cm/s PV Peak Velocity 101.0 cm/s FINDINGS Left Ventricle Technically limited quality echocardiogram because of poor ultrasonic windows. LV systolic function is grossly normal. Accurate assessment of regional wall motion abnormalities not possible because of limited visualization. Right Ventricle Grossly normal Right Atrium Normal in size Left Atrium Normal in size Mitral Valve Structurally normal mitral valve. Mild mitral regurgitation. Aortic Valve Grossly normal. No significant stenosis or regurgitation. Tricuspid Valve Not well visualized Pulmonic Valve Not well visualized Pericardium Grossly normal Aorta Normal in size IVC Not well visualized CONCLUSIONS Technically limited quality echocardiogram because of poor ultrasonic windows. LV systolic function is grossly normal Mild mitral regurgitation. Thierry Berger MD (Electronically Signed) Final Date: 02 Nov 2024 23:06 S
== END 2024-10-21 09:08 | disposition home or self-care (01) ==
PROVIDERS: PCP Family Medicine; Visit Provider Family Medicine
DX: I51.3 Intracardiac thrombosis, not elsewhere classified (principal); I34.0 Nonrheumatic mitral (valve) insufficiency
CPT/HCPCS: 93306

== ENCOUNTER 2024-11-18 13:46 | Outpatient (CLI) | payer SELFPAY ==
[2024-11-18 14:44] LABS: 25 Hydroxy Vitamin D 66 ng/mL (30-100)
== END 2024-11-18 13:47 | disposition home or self-care (01) ==
LOC: LAB 13:47
PROVIDERS: PCP Family Medicine; Visit Provider Dermatology
DX: Z01.89 Encounter for other specified special examinations (principal)

== ENCOUNTER 2025-01-28 21:02 | Outpatient (CLI) | payer OTHER, SELFPAY ==
[2025-01-28 21:47] LABS: PCP Screen Urine Negative (Negative)
== END 2025-01-28 21:03 | disposition home or self-care (01) ==
LOC: LAB 21:03
PROVIDERS: PCP Family Medicine; Visit Provider Family Medicine
DX: Z01.89 Encounter for other specified special examinations (principal)
CPT/HCPCS: 80306

== ENCOUNTER 2025-02-17 09:43 | Outpatient (CLI) | payer SELFPAY ==
[2025-02-17 10:28] LABS: HF Add Manual Diff No
[2025-02-17 10:33] LABS: Hematocrit 40.8 % (36-47); Hemoglobin 13.60 g/dL (11.27-16.99); Mean Corpuscular HGB Conc 33.3 g/dL (30-55); Mean Corpuscular Hemoglobin 29.1 pg (27-33); Mean Corpuscular Volume 87.2 fl (85-98); Nucleated Red Blood Cells % 0 %; Platelet Count 279 10^3/cmm (157-399); Red Blood Count 4.68 10^6/uL (3.85-5.65); White Blood Count 13.02 10^3/uL (3.29-11.43)
[2025-02-17 10:43] LABS: Estmated Average Glucose 174; Hemoglobin A1C 7.7 % (4.0-6.0)
[2025-02-17 11:20] LABS: Alanine Aminotransferase 20 U/L (0-33); Albumin Level 4.0 g/dL (3.5-5.2); Alkaline Phosphatase 83 U/L (35-105); Anion Gap 13.3 (5-19); Aspartate Amino Transferase 20 U/L (0-32); Blood Urea Nitrogen 11 mg/dL (6-20); Calcium 9.1 mg/dL (8.5-10.5); Carbon Dioxide 29 mmol/L (22-29); Chloride 100 mmol/L (98-107); Cholesterol 200 mg/dL (0-200); Globulin 3.2 g/dL (1.3-4.6); Glucose 147 mg/dL (65-115); HDL Cholesterol 35 mg/dL (60-100); Osmolality Calculated 290 mOsm/kg (285-295); Potassium 3.3 mmol/L (3.5-5.1); Sodium 139 mmol/L (136-145); Thyroid Stimulating Hormone 4.68 uIU/mL (0.27-4.20); Total Protein 7.2 g/dL (6.6-8.7); Triglycerides 166 mg/dL (0-150)
== END 2025-02-17 09:44 | disposition home or self-care (01) ==
PROVIDERS: PCP Family Medicine; Visit Provider Dermatology
DX: Z01.89 Encounter for other specified special examinations (principal)

== ENCOUNTER 2025-05-19 08:27 | Outpatient (CLI) | payer SELFPAY ==
[2025-05-19 09:27] LABS: HF Add Manual Diff No
[2025-05-19 09:30] LABS: Hematocrit 40.4 % (36-47); Hemoglobin 13.40 g/dL (11.27-16.99); Mean Corpuscular HGB Conc 33.2 g/dL (30-55); Mean Corpuscular Hemoglobin 28.6 pg (27-33); Mean Corpuscular Volume 86.1 fl (85-98); Nucleated Red Blood Cells % 0 %; Platelet Count 301 10^3/cmm (157-399); Red Blood Count 4.69 10^6/uL (3.85-5.65); White Blood Count 9.73 10^3/uL (3.29-11.43)
[2025-05-19 09:45] LABS: Estmated Average Glucose 160; Hemoglobin A1C 7.2 % (4.0-6.0)
[2025-05-19 10:00] LABS: Chloride 100 mmol/L (98-107); Potassium 3.1 mmol/L (3.5-5.1); Sodium 140 mmol/L (136-145)
[2025-05-19 10:40] LABS: Alanine Aminotransferase 29 U/L (0-33); Albumin Level 4.2 g/dL (3.5-5.2); Alkaline Phosphatase 69 U/L (35-105); Anion Gap 15.1 (5-19); Aspartate Amino Transferase 25 U/L (0-32); Blood Urea Nitrogen 15 mg/dL (6-20); Calcium 9.6 mg/dL (8.5-10.5); Carbon Dioxide 28 mmol/L (22-29); Cholesterol 223 mg/dL (0-200); Globulin 3.0 g/dL (1.3-4.6); Glucose 128 mg/dL (65-115); HDL Cholesterol 35 mg/dL (60-100); Osmolality Calculated 292 mOsm/kg (285-295); Total Protein 7.2 g/dL (6.6-8.7); Triglycerides 146 mg/dL (0-150)
[2025-05-19 10:56] LABS: Thyroid Stimulating Hormone 3.00 uIU/mL (0.27-4.20)
== END 2025-05-19 08:28 | disposition home or self-care (01) ==
PROVIDERS: PCP Family Medicine; Visit Provider Dermatology
DX: Z01.89 Encounter for other specified special examinations (principal)
CPT/HCPCS: 36415